=== PATIENT | male | born 1945 | race Hispanic/Latino ===

== ENCOUNTER → 2019-05-04 | Outpatient (CLI) | payer OTHER ==
[~2019-05-04] MED LIST: ASPI-1181 PO; ATOR-2 PO; GLIP10TA9 PO; METO-408 PO; [UNRECOGNIZED DRUG - OTHER] PO
== END | disposition home or self-care (01) ==
LOC: SHCH 15:57
PROVIDERS: ATTEND Internal Medicine Cardiovascular Disease
DX: I35.0 Nonrheumatic aortic (valve) stenosis (principal); I51.7 Cardiomegaly; K21.9 Gastro-esophageal reflux disease without esophagitis
CPT/HCPCS: 93306

== ENCOUNTER 2019-05-31 05:54 | Day surgery (SDC) | payer OTHER ==
[2019-05-27 10:41] VITALS: BP 149/80
[2019-05-27 10:47] LABS: BASOPHILS % (AUTO) 0.5 % (0.0-5.0); EOSINOPHILS % (AUTO) 2.8 % (0.0-8.0); HEMATOCRIT 40.3 % (42-54); MEAN CORPUSCULAR HGB CONC 34.2 g/dL (32.0-36.0); MEAN CORPUSCULAR VOLUME 90.7 fL (79-99); MONOCYTES % (AUTO) 6.6 % (3.0-13.0); NEUTROPHILS % (AUTO) 69.1 % (40.0-77.0); PLATELET COUNT (AUTO) 148 K/uL (130-400); RED BLOOD CELL COUNT(AUTO) 4.45 MIL/uL (4.50-6.20); RED CELL DISTRIBUTION WIDTH 13.5 % (11.0-15.5); WHITE BLOOD COUNT (AUTO) 7.9 K/uL (4.8-10.8)
[2019-05-27 11:01] LABS: INR 1.03 (0.85-1.15); PARTIAL THROMBOPLASTIN TIME 29.4 SEC (26.3-35.5); PROTHROMBIN TIME 10.8 SEC (9.6-11.6)
[2019-05-27 11:02] LABS: CREATININE 0.6 mg/dL (0.5-1.5); POTASSIUM 4.5 mmol/L (3.5-5.1)
[2019-05-27 11:06] LABS: APPEARANCE,URINE Clear (CLEAR); BILIRUBIN,URINE Negative (NEGATIVE); COLOR,URINE Yellow (YELLOW); GLUCOSE, URINE (UA) 500 mg/dL (NEGATIVE); KETONES,URINE Negative (NEGATIVE); LEUKOCYTE ESTERASE ,URINE Negative (NEGATIVE); NITRATE,URINE Negative (NEGATIVE); OCCULT BLOOD,URINE Negative (NEGATIVE); PROTEIN,URINE Negative (NEGATIVE); UROBILINOGEN,URINE 0.2 mg/dL (0.2-1.0)
[2019-05-27 11:44] LABS: BACTERIA,URINE Rare /HPF (None Seen); RBC,URINE None Seen /HPF (0-1); SQUAMOUS EPITHELIAL CELL,UR Rare /HPF (0-2); WBC,URINE 0-1 /HPF (0-1)
[~2019-05-31] VITALS: Ht 175.3 cm; Wt 94.1 kg
[2019-05-31] VITALS (10 sets, daily range): BP systolic 109–153; BP diastolic 61–82
--- NOTE | 2019-05-31 06:12 | NUR ---
PATIENT ARRIVED PATIENT ARRIVED TO DAY PATIENT ALONE, PATIENT STATES THAT HIS FRIEND "YANETH ANDERSON WILL BE PICKING ME UP." PATIENT AAOX3, RESPIRATIONS UNLABORED, VITAL SIGNS STABLE, DENIES ANY PAIN AT THIS TIME. PROCEDURE VERIFIED AND CONFIRMED WITH PATIENT. HOSPITAL ROUTINE EXPLAINED TO PATIENT AND PATIENT VERBALIZED UNDERSTANDING. ALL QUESTIONS/CONCERNS ADDRESSED WITH PATIENT.
[2019-05-31] MEDS ORDERED: SODIUM CHLORIDE 0.9% 1000ML 1,000 ML IV ONE (06:17)
[2019-05-31] MEDS ORDERED: SODIUM BICARB 50MEQ 50ML VIAL ONE (09:33)
[2019-05-31] MEDS ORDERED: NICARDIPINE HCL 25 MG/10 ML ML IV ONE (09:34)
[2019-05-31] MEDS ORDERED: NITROGLYCERIN 5 MG/ML 10 ML VIAL IV ONE (09:34)
[2019-05-31] MEDS ORDERED: IOHEXOL-350 50ML VIAL IV ONE (09:34)
[2019-05-31] MEDS ORDERED: HEPARIN SODIUM 1000UNIT/ML 10ML VIAL ONE (09:34)
[2019-05-31] MEDS ORDERED: IOHEXOL 350 MG/ML 100ML INFUS..BTL IV ONE (09:34)
[2019-05-31] MEDS ORDERED: LIDOCAINE HCL 2% 20ML ONE (09:34)
--- NOTE | 2019-05-31 09:45 | NUR ---
PATIENT TRANSFERRED PATIENT TAKEN TO [facility]UL[facility] MAN VIA BED BY ALYCIA WRIGHT. PATIENT EXPLAINED PROCEDURE AND VERIFIED UNDERSTANDING. NO FAMILY PRESENT AT THIS TIME.
[2019-05-31] MEDS ORDERED: MIDAZOLAM HCL 1 MG/ML 2ML VIAL ONE (10:09)
[2019-05-31] MEDS ORDERED: FENTANYL CITRATE PF 50 MCG/1 ML 2ML VIAL ONE (10:10)
--- NOTE | 2019-05-31 11:00 | NUR ---
PATIENT RETURNED PATIENT BROUGHT BACK FROM [facility] BY ALYCIA VALDEZ. PATIENT AAOX3, RESPIRATIONS UNLABORED, VITAL SIGNS STABLE, DENIES ANY PAIN AT THIS TIME. TR-BAND TO RIGHT WRIST IN PLACE, NO BLEEDING OR HEMATOMA NOTED. RADIAL PULSES PRESENT BILATERALLY.
--- NOTE | 2019-05-31 11:45 | NUR ---
TR BAND AIR REMOVED TR BAND TO RIGHT WRIST IN PLACE, NO BLEEDING OR HEMATOMA NOTED. 2 ML OF AIR REMOVED FROM BAND, NO SIGNS OF BLEEDING NOTED.PATIENT TOLERATED WELL. WILL CONTINUE TO MONITOR.
--- NOTE | 2019-05-31 13:55 | NUR ---
TR BAND AIR REMOVED TR BAND TO RIGHT WRIST IN PLACE, NO BLEEDING OR HEMATOMA NOTED. 2 ML OF AIR REMOVED FROM BAND, NO SIGNS OF BLEEDING NOTED.PATIENT TOLERATED WELL. NO MORE AIR REMAINS IN TR BAND. TR BAND REMOVED AND BANDAID APPLIED TO SITE. NO BLEEDING/HEMATOMA OR DRAINAGE NOTED.
--- NOTE | 2019-05-31 14:44 | NUR ---
PATIENT DISCHARGED PATIENT DISCHARGED FROM FACILITY VIA WHEELCHAIR, PATIENT ASSISTED INTO PRIVATE VEHICLE DRIVEN BY FRIEND.
== END 2019-05-31 14:45 | disposition home or self-care (01) ==
LOC: DAH 05:54
PROVIDERS: ATTEND Internal Medicine Cardiovascular Disease
DX: I35.0 Nonrheumatic aortic (valve) stenosis (principal); I25.10 Atherosclerotic heart disease of native coronary artery without angina pectoris; I11.0 Hypertensive heart disease with heart failure; I50.40 Unspecified combined systolic (congestive) and diastolic (congestive) heart failure; E11.9 Type 2 diabetes mellitus without complications; Z79.82 Long term (current) use of aspirin; Z79.899 Other long term (current) drug therapy; Z79.84 Long term (current) use of oral hypoglycemic drugs; Z98.890 Other specified postprocedural states; Z83.3 Family history of diabetes mellitus; Z82.49 Family history of ischemic heart disease and other diseases of the circulatory system
CPT/HCPCS: 36415; 71045; 80048; 81001; 82948 ×2; 85025; 85610; 85730; 93005; 93454; A4215; A4216; A4221; A4222; A4223 ×3; A4606; A4663; C1769; C1894; J1644 ×2; J2250; J3010; J3490 ×4; J7030; Q9965 ×2; Q9967; 99156; 99157

== ENCOUNTER → 2019-08-17 | Outpatient (CLI) | payer OTHER ==
[2019-08-16 12:04] LABS: BASOPHILS % (AUTO) 0.4 % (0.0-5.0); EOSINOPHILS % (AUTO) 1.4 % (0.0-8.0); HEMATOCRIT 38.9 % (42-54); LYMPHOCYTES % (AUTO) 18.2 % (21.0-51.0); MEAN CORPUSCULAR HEMOGLOBIN 29.7 pg (27.0-33.0); MEAN CORPUSCULAR HGB CONC 33.2 g/dL (32.0-36.0); MEAN CORPUSCULAR VOLUME 89.6 fL (79-99); MONOCYTES % (AUTO) 6.5 % (3.0-13.0); PLATELET COUNT (AUTO) 147 K/uL (130-400); RED BLOOD CELL COUNT(AUTO) 4.34 MIL/uL (4.50-6.20); RED CELL DISTRIBUTION WIDTH 12.9 % (11.0-15.5); WHITE BLOOD COUNT (AUTO) 8.1 K/uL (4.8-10.8)
[2019-08-16 12:12] LABS: INR 0.99 (0.85-1.15); PARTIAL THROMBOPLASTIN TIME 26.9 SEC (26.3-35.5); PROTHROMBIN TIME 10.4 SEC (9.6-11.6)
[2019-08-16 12:15] LABS: ALBUMIN 3.9 g/dL (3.5-5.0); BILIRUBIN,TOTAL 0.4 mg/dL (0.2-1.0); CREATININE 0.6 mg/dL (0.5-1.5); POTASSIUM 4.6 mmol/L (3.5-5.1); TOTAL PROTEIN, SERUM 7.6 g/dL (6.0-8.3)
[2019-08-16 12:19] LABS: HEMOGLOBIN A1C 8.9 % (4.0-6.0)
[2019-08-16 12:41] VITALS: BP 147/68
[~2019-08-17] VITALS: Ht 172.7 cm; Wt 96.7 kg
[~2019-08-17] MED LIST changes: +AMINOCAPROIC ACID 15,000 MG in SODIUM CHLORIDE 0.9% 500ML 500 ML IV PRN; +ATOR40TA71 PO; +CEFUROXIME SODIUM 1.5 GM VIAL IVP ONE; +EPINEPHRINE 10 MG in SODIUM CHLORIDE 0.9% 240 ML IV PRN; +NOREPINEPHRINE BITARTRATE 8 MG in DEXTROSE 5%-WATER 250 ML IV PRN
--- NOTE | 2019-08-17 18:15 | NUR ---
ABNORMAL LABS ABNORMAL CMP, H & H, RBC, HGB A1C REPORTED TO PREET ANDREWS RN. NO FURTHER ORDERS FROM DR. MONDRAGON, MAY PROCEED WITH PLANNED PROCEDURE.
== END | disposition home or self-care (01) ==
LOC: DAH 10:00 → EDSTATUS 11:00
PROVIDERS: ATTEND Thoracic Surgery (Cardiothoracic Vascular Surgery)
DX: Z01.818 Encounter for other preprocedural examination (principal); I25.10 Atherosclerotic heart disease of native coronary artery without angina pectoris; I35.0 Nonrheumatic aortic (valve) stenosis; M47.814 Spondylosis without myelopathy or radiculopathy, thoracic region; I65.23 Occlusion and stenosis of bilateral carotid arteries
CPT/HCPCS: 36415; 71046; 80053; 83036; 85025; 85610; 85730; 86850; 86900; 86901; 93005; 93880; 94010; A6260; 86922